=== PATIENT | female | born 1935 ===

== ENCOUNTER → 2018-05-18 | Outpatient (CLI) | payer OTHER ==
[~2018-05-18] MED LIST: CATAFLAN PO; FOLIC ACID1 MG PO; FOSAMAX70 MG PO; GABAPENTIN100 MG PO; HUMIRA40 MG/0.2; MINUS WEIGHT P1 EACH PO; NEURONTIN300 MG PO; OSTERA TABLET1 EACH PO; PRILOSEC OTC20 MG PO; PROTONIX20 MG PO; TRAMADOL HCL50 MG PO; VIT 12 PO; [UNRECOGNIZED DRUG - OTHER] PO
== END | disposition home or self-care (01) ==
LOC: RAD 07:47 → LAB 07:47
DX: R07.89 Other chest pain (principal); D68.8 Other specified coagulation defects; E78.2 Mixed hyperlipidemia; N39.0 Urinary tract infection, site not specified

== ENCOUNTER 2018-05-23 12:19 | Inpatient (IN) | payer OTHER ==
[~2018-05-23] VITALS: Ht 160 cm; Wt 72.6 kg
[2018-05-23] MEDS ORDERED: PRILOSEC OTC20 MG PO (12:58)
[2018-05-23] MEDS ORDERED: CATAFLAN PO (12:58)
[2018-05-23] MEDS ORDERED: HUMIRA40 MG/0.2 (12:58)
[2018-05-23] MEDS ORDERED: OSTERA TABLET1 EACH PO (12:59)
[2018-05-23] MEDS ORDERED: FOLIC ACID1 MG PO (12:59)
[2018-05-23] MEDS ORDERED: NEURONTIN300 MG PO (13:00)
[2018-05-23] MEDS ORDERED: TRAMADOL HCL50 MG PO (13:00)
[2018-05-23] MEDS ORDERED: GABAPENTIN100 MG PO (13:00)
[2018-05-23] MEDS ORDERED: FOSAMAX70 MG PO (13:01)
[2018-05-23] MEDS ORDERED: [UNRECOGNIZED DRUG - OTHER] PO (13:02)
[2018-05-23] MEDS ORDERED: VIT 12 PO (13:03)
[2018-05-23] MEDS ORDERED: MINUS WEIGHT P1 EACH PO (13:03)
[2018-05-23] MEDS ORDERED: PROTONIX20 MG PO (13:04)
== END 2018-06-01 18:01 | DRG 470 ==
LOC: SURH 05-30 06:05 → O/R 05-30 06:05 → SURH 05-30 10:36 → SURG 05-30 11:00 → SURH 06-01 18:01
PROVIDERS: Orthopaedic Surgery
PROC: 0SRD0J9 Replacement of Left Knee Joint with Synthetic Substitute, Cemented, Open Approach (ICD-10-PCS; principal; 2018-05-30 11:00)
DX: M17.12 Unilateral primary osteoarthritis, left knee (principal)

== ENCOUNTER 2019-05-17 08:14 | Outpatient (CLI) | payer OTHER | END 2019-05-17 08:22 | disposition home or self-care (01) | LOC: SONOGRAMA 08:14 | DX: E04.1 Nontoxic single thyroid nodule (principal) ==